=== PATIENT | female | born 1995 | race African-American/Black ===

== ENCOUNTER 2021-10-10 15:53 | Emergency (ER) | payer OTHER ==
[~2021-10-10] VITALS: Ht 157.5 cm; Wt 52.2 kg
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
--- NOTE | 2021-10-10 16:31 | NUR ---
MAUREEN COLLECTED AND SENT
--- NOTE | 2021-10-10 16:35 | NUR ---
EKG DONE AT BEDSIDE
[2021-10-10] MEDS ORDERED: ALPRAZOLAM 0.25 MG TABLET ONE (16:49)
[2021-10-10] MEDS ORDERED: ALPRAZOLAM 0.25 MG TABLET PO ONE (17:00)
[2021-10-10 17:35] VITALS: BP 116/65
== END 2021-10-10 17:50 | disposition home or self-care (01) ==
LOC: EDBD 15:59 → ER 15:59
DX: R55 Syncope and collapse (principal); F41.0 Panic disorder [episodic paroxysmal anxiety]; F41.9 Anxiety disorder, unspecified; Z88.8 Allergy status to other drugs, medicaments and biological substances
CPT/HCPCS: 84703-TC